=== PATIENT | male | born 1945 | race Caucasian/White ===

== ENCOUNTER 2017-09-28 11:31 | Emergency (ER) | payer MEDICARE ==
[~2017-09-28] VITALS: Ht 180.3 cm; Wt 102.0 kg
[2017-09-28] MEDS ORDERED: IBUPROFEN 600MG TABLET PO ONE (12:15)
[2017-09-28 12:19] VITALS: BP 147/91
== END 2017-09-28 12:30 | disposition home or self-care (01) ==
LOC: ER 12:10
DX: M54.5 Low back pain (principal); G20 Parkinson's disease
CPT/HCPCS: 99282

== ENCOUNTER 2017-12-05 09:12 | Emergency (ER) | payer MEDICARE ==
[~2017-12-05] VITALS: Ht 180.3 cm; Wt 102.0 kg
[2017-12-05 09:27] VITALS: BP 109/73
== END 2017-12-05 10:08 | disposition home or self-care (01) ==
LOC: ER 09:39
DX: G30.9 Alzheimer's disease, unspecified (principal); F02.80 Dementia in other diseases classified elsewhere, unspecified severity, without behavioral disturbance, psychotic disturbance, mood disturbance, and anxiety; M54.5 Low back pain; I10 Essential (primary) hypertension; E78.00 Pure hypercholesterolemia, unspecified
CPT/HCPCS: 99282; 99283